=== PATIENT | male | born 1995 | race Caucasian/White ===

== ENCOUNTER 2018-06-19 01:53 | Emergency (ER) | payer OTHER ==
[~2018-06-19] VITALS: Ht 182.9 cm; Wt 99.8 kg
[~2018-06-19 01:53] MED LIST: ALBUTEROL INHAL17 GM IH; NAPROXEN 500MG500 MG PO; ZYRTEC10 M1 PO
[2018-06-19] MEDS ORDERED: RANITIDINE 150150 M1 (02:03)
[2018-06-19] MEDS ORDERED: HYDROXYZINE HCL25 M1 PO (02:13)
[2018-06-19 02:21] VITALS: BP 134/78
--- NOTE | 2018-06-19 12:48 | EKG ---
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 06/19/18 1248 0200 0200 Jori Rosenberg MD, FACC /EPI
== END 2018-06-19 02:21 | disposition home or self-care (01) ==
LOC: M.ERS 01:53
DX: F41.9 Anxiety disorder, unspecified (principal); J45.909 Unspecified asthma, uncomplicated; Z88.5 Allergy status to narcotic agent; Z90.49 Acquired absence of other specified parts of digestive tract